=== PATIENT | female | born 1985 | race Caucasian/White ===

== ENCOUNTER 2017-07-12 17:50 | Inpatient (IN) | payer OTHER ==
[~2017-07-12] VITALS: Ht 165.1 cm; Wt 59.0 kg
[~2017-07-12 17:50] MED LIST: LATUDA40 M1 PO; LITHIUM CARBON300 M4 PO
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
[2017-07-13 14:36] LABS: ABSOLUTE BASOPHIL COUNT 0 /CUMM (0.0-0.2); ABSOLUTE EOSINOPHIL COUNT 0 /CUMM (0.0-0.7); ABSOLUTE GRANULOCYTE CT 4.2 /CUMM (1.4-6.5); ABSOLUTE LYMPH COUNT 1.8 /CUMM (1.2-3.4); ABSOLUTE MONOCYTE COUNT 0.4 /CUMM (0.10-0.60); BASOPHIL % 0.3 % (0.0-2.0); EOSINOPHIL % 0.4 % (0-5); GRANULOCYTE % 65.2 % (42.2-75.2); HEMATOCRIT 41.9 % (37-47); MEAN CORPUSCULAR HGB CONC 33.3 G/DL (33.0-37.0); MEAN CORPUSCULAR VOLUME 90.2 FL (81.0-99.0); MEAN PLATELET VOLUME 9.2 FL (7.4-10.4); PLATELET COUNT 216 /CUMM (130-400); RBC DISTRIBUTION WIDTH 14.1 % (11.5-14.5); RED BLOOD CELL CT 4.64 /CUMM (4.20-5.40); WHITE BLOOD CELL COUNT 6.5 /CUMM (4.8-10.8)
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
[2017-07-13 18:18] VITALS: BP 114/56
[2017-07-13 18:26] VITALS: BP 114/56
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
--- NOTE | 2017-07-13 19:48 | Admission Certification ---
Admission Certification Certification Statement - As attending physician, I certify that at the time of - admission, based on clinical presentation, severity of - symptoms, need for further diagnostic testing and - therapeutic interventions, and risk of adverse outcomes - without in-hospital treatment, in my clinical assessment, - this patient requires an acute hospital stay for a minimum - of two nights or longer. I have also considered psychsocial - factors such as support system, advanced age, financial - issues, cognitive issues, and failed out-patient treatments, - past re-admission history, safety of patient, and lack of - compliance as applicable. Specific rationale supporting this admission is: schizoaffective disorder
[2017-07-13 20:01] VITALS: BP 110/72
[2017-07-13 20:05] VITALS: BP 110/72
[2017-07-14] VITALS (8 sets, daily range): BP systolic 103–113; BP diastolic 54–66
[2017-07-14 08:19] LABS: ABSOLUTE BASOPHIL COUNT 0 /CUMM (0.0-0.2); ABSOLUTE EOSINOPHIL COUNT 0.1 /CUMM (0.0-0.7); ABSOLUTE GRANULOCYTE CT 2.6 /CUMM (1.4-6.5); ABSOLUTE LYMPH COUNT 2.3 /CUMM (1.2-3.4); ABSOLUTE MONOCYTE COUNT 0.4 /CUMM (0.10-0.60); BASOPHIL % 0.3 % (0.0-2.0); EOSINOPHIL % 1.7 % (0-5); GRANULOCYTE % 47.9 % (42.2-75.2); HEMATOCRIT 39.2 % (37-47); MEAN CORPUSCULAR HGB 29.8 PG (27.0-31.0); MEAN CORPUSCULAR HGB CONC 33.1 G/DL (33.0-37.0); MEAN PLATELET VOLUME 9.9 FL (7.4-10.4); PLATELET COUNT 164 /CUMM (130-400); RBC DISTRIBUTION WIDTH 14.4 % (11.5-14.5); RED BLOOD CELL CT 4.36 /CUMM (4.20-5.40); WHITE BLOOD CELL COUNT 5.5 /CUMM (4.8-10.8)
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
--- NOTE | 2017-07-14 15:00 | SOCIAL WORKER PROG NOTE PSYCH ---
Social Work Progress Note Progress Note SW attempted to meet with the patient to complete her social history, however she appeared anxious, guarded and stated that she would rather not complete the evaluation at this time.
[2017-07-15 08:10] VITALS: BP 102/57
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
[2017-07-15 12:11] VITALS: BP 118/61
[2017-07-15 15:44] VITALS: BP 122/55
--- NOTE | 2017-07-15 19:39 | SOCIAL WORKER PROG NOTE PSYCH ---
Social Work Progress Note Progress Note Pt was laying in bed, and stated 'I'm not answering any questions, but I will fill out the form for you". I tried to ask her where she was born etc. she stated no thank you. She rolled back over, and states "I will not answer those questions".
[2017-07-15 19:41] VITALS: BP 111/61
[2017-07-16 09:05] VITALS: BP 103/61
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
[2017-07-16 12:06] VITALS: BP 108/63
--- NOTE | 2017-07-16 14:51 | SOCIAL WORKER PROG NOTE PSYCH ---
Social Work Progress Note Progress Note Crisis internal controls analyst, Nadia, attempted to phani with the patient to complete the social. Pt said, "I won't answer questions until I get my phone call".
--- NOTE | 2017-07-16 15:59 | CP SOUTH PROGRESS NOTE PSYCH ---
Psych (Inpt) Progress Note Progress Note Include the following elements, when applicable: Involvement in the active treatment of the patient with behavioral observations of the patient and the patient's response to the treatment. Review of the ongoing treatment process in the context of the treatment plan. Indication of how multi-disciplinary staff members are carrying out the treatment plan. Plans for future interventions and recommendations for revision of the treatment plan. Liaison with other physicians/providers. Progress Note: Dr. Ivana Dodge's notes reviewed. Case and treatment plan discussed in team meeting. Staff reports that the patient's father is conservator. Patient is denying suicidal ideation. Isolating. She was paranoid when asked by nurse to confirm birthday. Refusing most Ativan doses. We will now discontinue CIWA. Patient seen at 11:14 a.m. States she feels fine but is really anxious in here and would like to leave. She finds it "super-anxious" provoking being here. She states that she finds that she is ready (to leave). Reports mood is good and states she is ready to go home. Reports she is just frustrated to be here. States that the questioning is really overwhelming her. Rates sad mood 4/10 and anxiety 6/10. She feels that no one is listening to her. Denies feeling hopeless, helpless, worthless or guilty. Denies active and passive suicidal ideation. Denies homicidal ideation. Denies auditory and visual hallucinations. Denies paranoid ideation and magical garvey. Insight is limited. Judgment was poor but is improving. Patient is superficial and is minimizing. Oriented 3 except gives the date as 07/15/17. Reports sleep is good and appetite is fine. Reports energy is good and she is just not happy to be here. Reports her medication is fine now. States she just graduated from [facility] and won't do IOP again. Wants to return to outpatient treatment with Dr. Lisa Martino. I advised her that Dr. Martino is leaving [place]. Patient maintains that this hospitalization was "just a blip." I participated in telephonic family meeting with patient, mother, father, and Melanie manager social media. Parents do not feel ready to accept the patient home. Patient was argumentative and irritable during the conference call. She basically asked her parents to give her one more chance and if she fails, then she will agree to depot medication next episode. She is telling us that she plans to quit marijuana use and that she will comply with medications. IMPRESSION: Slow progress. Continue present treatment plan. Patient apparently had disruptive behavior at home. Parents reportedly found a stash of marijuana. Patient is pressuring for discharge. We anticipate having an in-person family meeting with father on . Anticipate possible discharge at the end of the week. Continue current medications as written but we will consider tapering down Ativan over the next few days.
[2017-07-16 16:15] VITALS: BP 104/57
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
[2017-07-16 19:54] VITALS: BP 109/60
[2017-07-17 08:13] VITALS: BP 108/62
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
--- NOTE | 2017-07-17 12:01 | SOCIAL WORKER PROG NOTE PSYCH ---
Social Work Progress Note Progress Note JAQUAN DUDLEY [id number] 1985 JAQUAN DUDLEY [id number] Pended Authorization # Client Authorization # Type of Request [id number] CONCURRENT Date of Admission/ Start of Services Requested From Submission Date 07/13/2017 07/17/2017 07/17/2017
[2017-07-17 12:02] VITALS: BP 96/57
[2017-07-17 16:02] VITALS: BP 104/60
--- NOTE | 2017-07-17 16:39 | CP SOUTH PROGRESS NOTE PSYCH ---
Psych (Inpt) Progress Note Progress Note Include the following elements, when applicable: Involvement in the active treatment of the patient with behavioral observations of the patient and the patient's response to the treatment. Review of the ongoing treatment process in the context of the treatment plan. Indication of how multi-disciplinary staff members are carrying out the treatment plan. Plans for future interventions and recommendations for revision of the treatment plan. Liaison with other physicians/providers. Progress Note: Case and treatment plan discussed in team meeting. Staff reports that the patient is denying suicidal ideation. Described as withdrawn, isolative and tearful. Patient seen at 10:22 AM was social services analyst, Melanie. Patient reports doing well. Affect is calm and blunted. She is less irritable and less pressured today. Reports she is ready to give it one more shot and behave. Plans to work on a treatment contract with her parents but is now backing out of the idea of putting depot medication into the treatment contract if she does poorly in the future. Does not want to go to [facility]. States that she plans to take her medications on time and she does not think she needs a visiting nurse. States she will stop using marijuana. Mood: "I'm really anxious being in here." Rates anxiety 8/10 and sad mood 7/10. Denies feeling hopeless, worthless or guilty. Does feel helpless. Denies active and passive suicidal ideation. Denies homicidal ideation. Denies auditory and visual hallucinations and paranoid ideation. Reports sleep and appetite are good and energy is low. Tolerating medications and reports she likes her medications. IMPRESSION: Slow progress. Continue present treatment plan. We are trying to arrange an in -person family meeting with father, who is conservator. Anticipate likely discharge on Sunday if treatment gains are sustained and if patient and father come to terms on a treatment contract.
[2017-07-17 19:52] VITALS: BP 109/63
[2017-07-18 08:15] VITALS: BP 109/59
--- NOTE | 2017-07-18 10:52 | SOCIAL WORKER PROG NOTE PSYCH ---
Social Work Progress Note Progress Note COMPLETED [facility] ONLINE REVIEW CONCURRENT. CHECK WEB IN AM FOR NEXT REVIEW DATE.
[2017-07-18 12:14] VITALS: BP 107/61
--- NOTE | 2017-07-18 13:34 | CP SOUTH PROGRESS NOTE PSYCH ---
Psych (Inpt) Progress Note Progress Note Include the following elements, when applicable: Involvement in the active treatment of the patient with behavioral observations of the patient and the patient's response to the treatment. Review of the ongoing treatment process in the context of the treatment plan. Indication of how multi-disciplinary staff members are carrying out the treatment plan. Plans for future interventions and recommendations for revision of the treatment plan. Liaison with other physicians/providers. Progress Note: Case and treatment plan discussed in team meeting. Staff reports that the patient is denying suicidal ideation. Refusing Ativan, so we will discontinue it. Described as isolative. Not going to groups. Family meeting is scheduled for tomorrow afternoon with father. Patient seen at 11:50 AM. She was resting in bed but got up and met with me in office. She is asking for discharge tomorrow. Raises no other issues or complaints. Reports her medications are fine. States she does not need Ativan. Wants Nicorette dose changed to 4 mg. Affect is calm, blunted and superficial. States she is "just ready to be discharged, that's all." Reports mood is fine. Rates sad mood 3/10 and anxiety 2/10. Denies feeling hopeless, helpless, worthless or guilty. Denies suicidal and homicidal ideation. Denies auditory and visual hallucinations and paranoid ideation. Describes sleep, appetite and energy as good. IMPRESSION: Slow progress. Continue present treatment plan. Await outcome of tomorrow's family meeting with father. Anticipate likely discharge on Sunday to parents' home if the patient and her father can reach an agreement about terms for a treatment contract.
[2017-07-18 16:03] VITALS: BP 107/58
--- NOTE | 2017-07-18 16:21 | SOCIAL WORKER PROG NOTE PSYCH ---
Social Work Progress Note Progress Note Flores has been in bed most of the day isolating. Does not attend groups or engage in tx here. I checked in with her in her room around 4pm. She continues to just say "I want to go home." I told her that her Father is coming tomorrow afternoon so that we can discuss the expectations surrounding treatment. She advocated to go home after that meeting. I told her that we need to see how that meeting goes. She basically told me she was in her room until she goes home. She is eating. Asked if she had any other concerns? She just says she wants to go home.
[2017-07-18 19:39] VITALS: BP 112/60
[2017-07-19 10:15] VITALS: BP 102/61
[2017-07-19 12:49] VITALS: BP 137/66
--- NOTE | 2017-07-19 13:20 | CP SOUTH PROGRESS NOTE PSYCH ---
Psych (Inpt) Progress Note Progress Note Include the following elements, when applicable: Involvement in the active treatment of the patient with behavioral observations of the patient and the patient's response to the treatment. Review of the ongoing treatment process in the context of the treatment plan. Indication of how multi-disciplinary staff members are carrying out the treatment plan. Plans for future interventions and recommendations for revision of the treatment plan. Liaison with other physicians/providers. Progress Note: Case and treatment plan discussed in team meeting. Staff reports that the patient is very isolative and withdrawn. Noted to be tearful and crying at times. Family meeting is scheduled with father for this afternoon. Patient seen at 1:12 p.m. She was reading in bed but got up and met with me in office. Reports feeling well. States she is ready to go home. Her only focus of discussion is leaving. Affect is calm and blunted, superficial. Mood: "I'm really upset I'm in here still." Rates sad mood 6/10 and anxiety 5/10. Denies feeling hopeless, helpless, worthless or guilty. Denies suicidal and homicidal ideation. Denies auditory and visual hallucinations and paranoid ideation. Reports sleep is fine. Reports appetite is good and energy is fine. Tolerating medications well and states that she likes them. IMPRESSION: Slow progress. Continue present treatment plan. Anticipate possible discharge tomorrow if patient and father can agree on terms for patient's return home. Await outcome of this afternoon's family meeting with father, who is also conservator of person.
[2017-07-19 15:45] VITALS: BP 105/63
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
[2017-07-19 19:27] VITALS: BP 124/78
--- NOTE | 2017-07-20 08:30 | SOCIAL WORKER PROG NOTE PSYCH ---
See Addendum Social Work Progress Note Progress Note Called several VNS agencies this morning to set up services for Flores. Many providers do not provide behavioral health nursing in [place]. I was able to finally secure services with [facility] out of [place] [phone]. Flores was in her room in bed around 10:00am. I informed her that [facility] will accept her into their mental health track. She was pleased with that. I told her that she can go for an intake today at 1:15pm and I was going to contact her Dad to come at 1pm to review her contract. I also let her know that VNS services were being set up with [facility] and they will start seeing her today at her home. She reported feeling okay and just wanting to go home. No other concerns. Spoke with Jes from [facility]. She said they definetely have a nurse to see her , Sun, Sat, Sun, and they are working on securing a nurse for Sunday, , . They will see her today around 3pm. Spoke with Mr. Griffiths and informed him of the above information. Gave him [facility] phone number. He will be here for around 1pm to review the contract. Attempted to call the [facility] Careline again this morning. I was on hold for 30 minutes and needed to end the call. I faxed a 136 report to the [facility] office and let them know I was attempting to make a verbal report, but couldn't. Flores's Father arrived at 1pm. Flores made a comment about not wanting to review the tx contract in front of people. I offered to bring her and Dad in the conference room. She declined and just said "I'm just going to sign it." Encouraged her to read it. She signed it and Dad reviewed it and signed it. I gave each a copy. She left with Dad to attend the 1:15 intake.
[2017-07-20 08:31] VITALS: BP 101/52
[2017-07-20] MEDS ORDERED: ZYPREXA20 M1 PO (10:29)
[2017-07-20] MEDS ORDERED: ONE DAILY MULT1 EAC2 PO (10:29)
[2017-07-20] MEDS ORDERED: NICORELIEF4 MG PO (10:29)
[2017-07-20] MEDS ORDERED: TOPIRAMATE100 M2 PO (10:29)
--- NOTE | 2017-07-20 10:37 | Patient Discharge Instructions ---
Psych Discharge Inst General Discharge Information Reason for Admission: Mute, not interacting, not really catatonic but refusing to speak. paranoid, no insight. Psy Discharge Primary Diag+ Schizoaffective disorder, bipolar type Psy Discharge Secondary Diag+ Cannabis use disorder Summary Tests/Major Procedures Lab ALT 19 U/L 07/14/17 0635 AST 14 U/L 07/14/17 0635 BUN 15 mg/dL 07/14/17 0635 Calcium 9.2 mg/dL 07/14/17 0635 Carbon Dioxide 23 mmol/L 07/14/17 0635 Chloride 106 mmol/L 07/14/17 0635 Cholesterol 223 MG/DL H 07/13/17 1425 Cholesterol/HDL Ratio 4 % 07/13/17 1425 Creatinine 0.7 mg/dL 07/14/17 0635 Estimated GFR > 60 ml/min 07/14/17 0635 Glucose 60 mg/dL L 07/14/17 0635 HDL Cholesterol 59 mg/dL 07/13/17 1425 Hemoglobin A1c 4.8 % 07/13/17 1425 LDL Cholesterol, Calc 149 mg/dL H 07/13/17 1425 Potassium 3.8 mmol/L 07/14/17 0635 Sodium 143 mmol/L 07/14/17 0635 TSH &T3 &Free T4 Intrp 0.455 uIU/mL 07/13/17 1425 Total Beta HCG NEGATIVE 07/13/17 1425 Total Protein 6.2 g/dL L 07/14/17 0635 Triglycerides 75 mg/dL 07/13/17 1425 Hct 39.2 % 07/14/17 0635 Hgb 13.0 G/DL 07/14/17 0635 Plt Count 164 /CUMM 07/14/17 0635 WBC 5.5 /CUMM 07/14/17 0635 Serum Alcohol < 10.0 MG/DL 07/14/17 0635 Urine Cannabis Screen > 80.00 NG/ML H 07/13/17 1422 Urine Test NEGATIVE 07/13/17 1422 Studies Pending at [place]: None. Patient Instructions Contact Information Your Psychiatrist on [facility] was Heuy Norman MD * If you are experiencing an emergency related to this hospitalization, please call [phone] to contact the treating psychiatrist or the psychiatrist-on- call. * To Request a copy of your medical records, please contact the Medical Records Department at [phone]. * To request results of studies pending at the time of discharge, please call [phone]. * Continue your Medications until directed to stop by your Healthcare provider. General Medication Information Please continue to take your new medications and your continued home medications , unless otherwise indicated on your discharge medication list, or unless directed by your MD or COMPUTER SYSTEMS SECURITY ANALYST to stop them. Special Instructions Diet Regular Activity Normal Other Inst/Recommendations Please stop using pot. Take meds as Rx'd. See PCP about abnormal labs. - Tobacco Use Treatment Offered Post DC Medications Offered: Script Given-See Med List Post DC Tobacco Treatment Plan: [facility] Tobacco Tx P[facility] Program Appt Date: 08/01/17 Program Appt Time: 1600 - EtOH/Drug Use D/O Treatment Offered Post DC Medications Offered: Med Not Indicated for D/O Post DC EtOH/SubAbuse TX Plan: [facility] SubAbuse/Dual IOP Program Appt Date: 07/20/17 Program Appt Time: 1315 Metabolic Screening () Not Applicable, patient not on a neuroleptic. OR () Patient on a neuroleptic(s) . Enter below results for Hemoglobin A1C, and lipid panel if obtained during the last 365 days. BMI: 21.600 Blood Pressure: 101/52 Laboratory Results From [facility] EHR (If applicable): [x] Lab Cholesterol 223 MG/DL H 07/13/17 1425 Cholesterol/HDL Ratio 4 % 07/13/17 1425 HDL Cholesterol 59 mg/dL 07/13/17 1425 Hemoglobin A1c 4.8 % 07/13/17 1425 LDL Cholesterol, Calc 149 mg/dL H 07/13/17 1425 Triglycerides 75 mg/dL 07/13/17 1425 Advance Directives Does the Patient have Medical Advance Directives No/Refused further info Does Pt have Psychiatric Advance Directives? No/Refused further info Does Patient have a Designated Surrogate Decision Maker: No Information About Psychiatric Advance Directives Provided? Refused Discharge Plan Post Hospital Treatment Plan: Returning to home and parents. Being referred to IOP intake (to address mental health and substance abuse). Visiting nurse referral in process.
[2017-07-20 12:04] VITALS: BP 108/60
--- NOTE | 2017-07-20 13:23 | SOCIAL WORKER PROG NOTE PSYCH ---
Social Work Progress Note Faxed Referral(s) 1 Referred To: IOP Transition of Care Documents sent: Health Summary, W10 Faxed to: IOP Fax #: [phone] Faxed by: Melanie Cornell Date faxed: 07/20/17 Time Faxed: [phone] Faxed Referral(s) 2 Transition of Care Documents sent: Health Summary, W10 Faxed to: Patient care [facility] Fax #: [phone] Faxed by: Melanie Cornell Date faxed: 07/20/17 Time Faxed: [phone]
--- NOTE | 2017-07-20 15:34 | CP SOUTH PROGRESS NOTE PSYCH ---
Psych (Inpt) Progress Note Progress Note Include the following elements, when applicable: Involvement in the active treatment of the patient with behavioral observations of the patient and the patient's response to the treatment. Review of the ongoing treatment process in the context of the treatment plan. Indication of how multi-disciplinary staff members are carrying out the treatment plan. Plans for future interventions and recommendations for revision of the treatment plan. Liaison with other physicians/providers. Progress Note: I attended family meeting with patient, father and psychiatric social worker, Melanie, yesterday afternoon. Father's and patient's questions were addressed. Case and treatment plan discussed in team meeting. Staff reports that the patient is attending groups. We are trying to arrange a visiting nurse out of [place]. Patient has an intake at [facility] at 1:15 PM today. Patient seen at 10:14 AM with medical student. Patient was resting in bed but got up and met with us in office. Feels fine. Has no complaints. Gives short answers. She is superficial and guarded. Affect is blunted, flat and irritable. Patient apparently came to terms with her father on a treatment contract. Reports mood is fine. Rates sad mood 0/10 and anxiety 3/10. Denies feeling hopeless, helpless, worthless or guilty. Denies active and passive suicidal ideation. Denies homicidal ideation. Denies auditory and visual hallucinations and paranoid ideation. Reports sleep is good, appetite is fine and energy is good. Tolerating medications well, without complaint. Feels ready and safe for discharge. IMPRESSION: Condition improved. Okay for discharge to [facility] intake then to parents' home.
--- NOTE | 2017-07-20 15:40 | DISCHARGE SUMMARY REPORT-PSYCH ---
Visit Information Visit Dates/Diagnosis' Admission Date: 07/13/17 Discharge Date: 07/20/17 Reason for Admission: Mute, not interacting, not really catatonic but refusing to speak. paranoid, no insight. Psy Discharge Primary Diag: Schizoaffective disorder, bipolar type Psy Discharge Secondary Diag: Cannabis use disorder Hospital Course Significant Lab Findings: Lab ALT 19 U/L 07/14/17 0635 AST 14 U/L 07/14/17 0635 BUN 15 mg/dL 07/14/17 0635 Calcium 9.2 mg/dL 07/14/17 0635 Carbon Dioxide 23 mmol/L 07/14/17 0635 Chloride 106 mmol/L 07/14/17 0635 Cholesterol 223 MG/DL H 07/13/17 1425 Cholesterol/HDL Ratio 4 % 07/13/17 1425 Creatinine 0.7 mg/dL 07/14/17 0635 Estimated GFR > 60 ml/min 07/14/17 0635 Glucose 60 mg/dL L 07/14/17 0635 HDL Cholesterol 59 mg/dL 07/13/17 1425 Hemoglobin A1c 4.8 % 07/13/17 1425 LDL Cholesterol, Calc 149 mg/dL H 07/13/17 1425 Potassium 3.8 mmol/L 07/14/17 0635 Sodium 143 mmol/L 07/14/17 0635 TSH &T3 &Free T4 Intrp 0.455 uIU/mL 07/13/17 1425 Total Beta HCG NEGATIVE 07/13/17 1425 Total Protein 6.2 g/dL L 07/14/17 0635 Triglycerides 75 mg/dL 07/13/17 1425 Hct 39.2 % 07/14/17 0635 Hgb 13.0 G/DL 07/14/17 0635 Plt Count 164 /CUMM 07/14/17 0635 WBC 5.5 /CUMM 07/14/17 0635 Serum Alcohol < 10.0 MG/DL 07/14/17 0635 Urine Cannabis Screen > 80.00 NG/ML H 07/13/17 1422 Urine Test NEGATIVE 07/13/17 1422 Course Complications: None. Consultations: The patient was seen by Dr. Tineo for admission H&P. Please refer to Dr. Tineo's note for additional information. Allergies: Coded Allergies: gluten (Severe, INFLAMMATION 09/10/15) Hospital Course/TX Response: The patient was monitored on the unit for safety, psychosis and mood disorder. She initially refused groups but started to attend groups on the day prior to discharge. Ativan was ordered for mutism/near-catatonia. Patient ultimately refused Ativan and it was discontinued. Patient was treated with Zyprexa and Topamax. Patient tended to give short answers. She was mainly focused on discharge throughout her hospital stay. There was a successful family meeting on 07/19/17. Progress note from date of discharge, 07/20/17: "I attended family meeting with patient, father and social human services assistants, Melanie, yesterday afternoon. Father's and patient's questions were addressed. Case and treatment plan discussed in team meeting. Staff reports that the patient is attending groups. We are trying to arrange a visiting nurse out of [place]. Patient has an intake at [facility] at 1:15 PM today. Patient seen at 10:14 AM with medical student. Patient was resting in bed but got up and met with us in office. Feels fine. Has no complaints. Gives short answers. She is superficial and guarded. Affect is blunted, flat and irritable. Patient apparently came to terms with her father on a treatment contract. Reports mood is fine. Rates sad mood 0/10 and anxiety 3/10. Denies feeling hopeless, helpless, worthless or guilty. Denies active and passive suicidal ideation. Denies homicidal ideation. Denies auditory and visual hallucinations and paranoid ideation. Reports sleep is good, appetite is fine and energy is good. Tolerating medications well, without complaint. Feels ready and safe for discharge. IMPRESSION: Condition improved. Okay for discharge to [facility] intake then to parents' home." Discharge HBIPS - Tobacco Use Treatment Offered Post DC Medications Offered: Script Given-See Med List Post DC Tobacco Treatment Plan: [facility] Tx [facility] Program Appt Date: 08/01/17 Program Appt Time: 1600 - EtOH/Drug Use D/O Treatment Offered Post DC Medications Offered: Med Not Indicated for D/O Post DC EtOH/SubAbuse TX Plan: [facility] SubAbuse/Dual IOP Program Appt Date: 07/20/17 Program Appt Time: 1315 Metabolic Screening - Screen if on a Neuroleptic Medication - Metabolic screening should include: - Blood Pressure, BMI, Glucose or Hgb A1c, & a - Lipid profile from within the past 365 days. Metabolic Screening () Not Applicable, patient not on a neuroleptic. OR () Patient on a neuroleptic(s) . Enter below results for Hemoglobin A1C, and lipid panel if obtained during the last 365 days. BMI: 21.600 Blood Pressure: 108/60 Laboratory Results From [facility] EHR (If applicable): [x] Lab Cholesterol 223 MG/DL H 07/13/17 1425 Cholesterol/HDL Ratio 4 % 07/13/17 1425 HDL Cholesterol 59 mg/dL 07/13/17 1425 Hemoglobin A1c 4.8 % 07/13/17 1425 LDL Cholesterol, Calc 149 mg/dL H 07/13/17 1425 Triglycerides 75 mg/dL 07/13/17 1425 Discharge Instructions General Discharge Information Multiple Neuroleptics: ([x]) Not Applicable OR Document below three failed attempts at monotherapy, or a plan to taper to monotherapy, or augmentation of Clozapine. () Discharge Diet Regular Discharge Activity Normal DC Disposition: Returning to parents' home. Referrals Ordered Referrals Provider Referral 07/20/17 For Groups: [[facility]] [facility] for mental health and substance use treatment [facility] [place] [address] Provider Referral 07/20/17 For Groups: [Patient Care Visiting Nurse] [facility] Visiting Nurse Services for daily medication administration to start 07/20/17pm [phone] Prescriptions Stop taking the following medications: Lurasidone HCl (Latuda) 40 MG TABLET ORAL Every night Qty = 14 Ivey Carbonate (Ivey Carbonate) 300 MG CAPSULE ORAL DAILY Qty = 42 Ivey Carbonate (Ivey Carbonate) 300 MG CAPSULE ORAL Every night Start taking the following new medications: Nicotine Polacrilex (Nicorelief) 4 MG GUM 4 Milligram ORAL EVERY 2 HOURS NEEDED as needed for nicotine craving Qty = 100 No Refills Comments: Last Taken:07/20/17 Time:11am Topiramate (Topiramate) 100 MG TABLET 1 Tablet ORAL TWICE DAILY Qty = 28 No Refills Comments: Last Taken:07/20/17 Time:9am Multivitamin (One Daily Multivitamin) 1 EACH TABLET 1 Tablet ORAL DAILY Qty = 14 No Refills Comments: Last Taken:07/20/17 Time:9am Olanzapine (Zyprexa) 20 MG TABLET 1 Tablet ORAL AT BEDTIME Qty = 14 No Refills Comments: Last Taken:07/19/17 [id number] Other Inst/Recommendations Please stop using pot. Take meds as Rx'd. See PCP about abnormal labs. Studies Pending at Discharge None. Copies To: Intensive Outpt Psychiatry
--- NOTE | 2017-07-21 12:01 | SOCIAL WORKER PROG NOTE PSYCH ---
Social Work Progress Note Progress Note Determination Status: DISCHARGE COMPLETED Thank you. You have completed your discharge for this episode of care. Member Name Member ID Member Subscriber Name Subscriber ID JAQUAN DUDLEY [id number] JAQUAN DUDLEY [id number] Related Authorization # Related Client Authorization # Discharge # Discharge Date [id number] 07/20/2017 Level of Service Type of Service Level Of Care Type of Care IP - INPATIENT/HLOC P - MENTAL HEALTH I - INPATIENT CIPFH - INPATIENT HOSPITAL - INPATIENT HOSPITAL Provider Name & Address Provider ID Provider Alternate ID ALMA TIRADO [id number] [address] [place] [phone]
== END 2017-07-20 13:09 | DRG 750 ==
LOC: ERH 17:50 → ERHI 07-13 13:20 → CP SOUTH 07-13 13:20 → ENTRNSPT 07-13 17:34 → EDTRNSPTSTS 07-13 17:49 → EDTRNSPT 07-13 17:49 → CP SOUTH 07-13 18:02 → CMPTRNSPT 07-13 18:09 → ENRESERV 07-13 23:59 → CP SOUTH 07-17 17:09
PROVIDERS: Emergency Medicine; Physician Assistant Medical
DX: F25.9 Schizoaffective disorder, unspecified (principal); F12.90 Cannabis use, unspecified, uncomplicated
CPT/HCPCS: 36415; 80307; 81025; G0480; J3490